=== PATIENT | female | born 1990 | race Caucasian/White ===

== ENCOUNTER 2019-05-25 11:32 | Inpatient (IN) | payer OTHER, SELFPAY ==
[2019-05-25] MEDS ORDERED: Ringers Lactate 1,000 ML IV PRN (12:44)
[2019-05-25] MEDS ORDERED: PROMETHAZINE 25 MG/ML VIAL IM PRN (12:44)
[2019-05-25] MEDS ORDERED: BUTORPHANOL 1 MG/ML INJ IV PRN (12:44)
[2019-05-25] MEDS ORDERED: METHYLERGONOVINE 0.2MG/ML AMP IM PRN (12:44)
[2019-05-25] MEDS ORDERED: CARBOPROST TROME 250 MCG/ML IM PRN (12:44)
[2019-05-25] MEDS ORDERED: Ringers Lactate 1,000 ML IV ONE (12:49)
[2019-05-25] MEDS ORDERED: OXYTOCIN/LR 20 UNIT/1,000 ML BAG IV ONE (12:49)
[2019-05-25] MEDS ORDERED: Ringers Lactate 1,000 ML IV SCH (13:00)
[2019-05-25] MEDS ORDERED: OXYTOCIN/LR 20 UNIT/1,000 ML BAG IV SCH ×2 (13:00→18:00)
[2019-05-25 13:04] VITALS: BMI 29.4
[2019-05-25 13:38] LABS: Absolute Lymphocytes (CBC) 2.3 K/uL (0.7-4.9); Basophils % 0.6 % (0-1.3); Hematocrit 36.1 % (36.0-45.0); Lymphocytes % 16.7 % (15.3-44.8); MPV 8.9 fL (7.6-11.3); RBC Red Blood Cell Count 4.23 M/uL (3.86-4.86)
[2019-05-25] MEDS ORDERED: FENTANYL CITR 100 MCG/2 ML IV ONE (17:02)
[2019-05-25] MEDS ORDERED: ROPIVACAINE HCL 100 ML IV ONE (17:03)
[2019-05-25] MEDS ORDERED: LIDOCAINE 1% 20 ML MDV ONE (17:13)
[2019-05-25] MEDS ORDERED: ROPIVACAINE HCL 20 ML ONE (17:19)
[2019-05-25] MEDS ORDERED: IBUPROFEN 200 MG TAB PO PRN (17:58)
[2019-05-25] MEDS ORDERED: Oxycodone HCl/Acetaminophen 1 TAB TAB PO PRN ×2 (17:58)
[2019-05-25] MEDS ORDERED: ACETAMINOPHEN 500 MG TAB PO PRN (17:58)
[2019-05-25] MEDS ORDERED: BISACODYL 10 MG RECTAL SUPP RECT PRN (17:58)
[2019-05-25] MEDS ORDERED: DIPHENHYDRAMINE 25 MG TAB/CAP PO PRN (17:58)
[2019-05-25] MEDS ORDERED: DOCUSATE NA/SENNA CONC 1 TAB PO PRN (17:58)
[2019-05-25] MEDS ORDERED: ROPIVACAINE HCL 0.2% 20ML AMP IV ONE (18:00)
[2019-05-25 20:10] LABS: Blood Morphology Comment NOT SEEN (NOT SEEN); Platelet Estimate ADEQ; Platelets, Giant FEW
[2019-05-26 00:15] LABS: RPR (Rapid Plasma Reagin) NON-REACT (NON-REACT)
--- NOTE | 2019-05-26 09:49 | PREOPHP ---
Date of Admission: 05/25/2019 This 29-year-old 3, para 2, 38 weeks 5 days, scheduled to see me tomorrow and we were idalia gaines on stripping her membranes at her request. She experienced spontaneous rupture of membranes about 3.5 hours ago and clear fluid. The patient is 1.5 cm, 50% effaced, vertex, -1 station. Clear fluid. FHTs normal, reactive. Rh positive, immune to Rubella. Negative beta strep screen. We have discu ssed expected management versus oxytocin. We have decided to start oxytocin. We will increase every 30 minutes as per routine but when patient gets into a point where she thinks she is having adequate contractions will not advance from that point forward unless there is no progress. Full admission miriam k given. The last time she had a spinal block at around 7 cm and she enjoyed that. Wants the same t deanne if possible, Dr. Nelson is c iron worker this weekend and is probably the one who did her spinal last time. We will see what we can do depending upon the situation. CARLOS/CYNDI Voice ID: [id number]
--- NOTE | 2019-05-26 09:49 | OP ---
Surgeon: Miguel Pompa MD 29-year-old 3, para 2, 38 weeks 5 days. Experienced spontaneous rupture of membranes, approx imately 3 hours prior to admission. On admission, 1.5 cm, 50%, vertex, -1 station. Rh positive, imm une to Rubella. Negative beta strep screen. Patient was started on light Pitocin. At 4 cm, she req uested epidural anesthesia, but as she was sitting up she had the urge to push and was laid back down and noted to be complete. Second stage of 10 minutes or less. Spontaneous vaginal delivery of a 7 pounds 6 ounce male , loose nuchal cord x1. Apgars 8 and 9. Small first-degree laceration rep aired with 2-0 chromic under local infiltration, 4 stitches total. Schultze delivery of the placenta which was inspected. During her patient was told it was a circumvallate placenta, but alyssa cental inspection showed no problems with insertion, no room around the placental edge, nothing that looks unusual or distinguished this placenta from any other. Blood loss less than 200 mL. Patient t olerated all procedures well. Final Diagnoses: Term intrauterine at 38 weeks 5 days, spontaneous rupture of membranes, v aginal delivery. CARLOS/MODL Voice ID: [id number] Report ID: [id number]
[2019-05-26 15:32] VITALS: BP 129/73; TEMP 96.4
[2019-05-26] MEDS ORDERED: Ringers Lactate 1,000 ML IV ONE (18:32)
--- NOTE | 2019-05-27 06:13 | DS ---
Date of Discharge: 05/26/2019 Summary: 29-year-old 3, para 2, 38 weeks 5 days. Experienced spontaneous rupture of membran es, came into Labor and Delivery, clear fluid, 1.5 cm, vertex, -1 station. Started on light Pitocin augmentation. Went into a very active labor pattern. Requested epidural anesthesia at 4 cm, but dur ing the process she began to push, was laid back down and noted to be complete spontaneously delivere d a 7 pound 6 ounce male , loose nuchal cord. Apgars 8 and 9. Small first-degree lacerations sutured with 2-0 chromic under local infiltration. Schultze delivery of the placenta, which looked t otally normal. Estimated blood loss is less than 200 cc. Rh positive, immune to Rubella. Negative beta strep screen. ; afebrile, ambulating and voiding. Lochia is normal. Patient will be dismissed later today to report back to my office in 6 weeks for followup, to report any temperature elevation of 100 degrees or greater, severe pain, heavy bleeding, or any other type of abnormality. Requests no analgesics on dismissal. Offered Tdap immunization, she had that with her last pregnanc y, but knows that she probably should get another immunization, she knows also she can come by the of [place] for flu shot if she desires and it is again suggested. Final Diagnoses: Term intrauterine at 38 weeks 5 days, spontaneous rupture of membranes, v aginal delivery. Tdap offered. CARLOS/CYNDI Voice ID: [id number] Report ID: [id number]
[2019-05-29 03:10] LABS: HBsAG Nonreactive (Nonreactive)
== END 2019-05-26 19:10 | disposition home or self-care (01) | DRG 807 ==
LOC: L&D 11:32 → 2ND-WC 12:28
PROVIDERS: ADMIT Specialist; ATTEND Specialist
PROC: 10E0XZZ Delivery of Products of Conception, External Approach (ICD-10-PCS; principal; 2019-05-25)
PROC: 0HQ9XZZ Repair Perineum Skin, External Approach (ICD-10-PCS; 2019-05-25)
DX: O70.0 First degree perineal laceration during delivery (principal); Z37.0 Single live birth; O69.81X0 Labor and delivery complicated by cord around neck, without compression, not applicable or unspecified; Z3A.38 38 weeks gestation of pregnancy
CPT/HCPCS: 36415; 85025; 86592; 86901; 87340; J2210; J2590; J2795; J3010